=== PATIENT | female | born 1985 | race Caucasian/White ===

== ENCOUNTER 2024-01-13 08:33 | Outpatient (CLI) | payer OTHER, MEDICARE, SELFPAY ==
--- NOTE | 2024-01-13 | CA_ITS ---
APPROVED REPORT EXAM: Comprehensive 2D, Doppler, and color-flow Echocardiogram Period[employer] Library Assistant: MARIELLE Melendez, RVS Ht: 5 ft 6 in Wt: 310lbs BSA: 2.41 BP: 155/89 mmHg Indications: Dizziness and Vertigo 2D Dimensions IVSd 1.19 cm LA Volume 47.60 mL PWd 1.06 cm LA Volume Index 19.30 mL/m2 (M/F) 16-34 Left Atrium 3.73 cm M-Mode Dimensions RVDd 2.33 cm (0.9-2.6) LA Diam 4.10 cm (1.9-4.0) LVDd 4.65 cm (3.5-5.7) LVDs 3.20 cm (3.5-5.7) IVSd 1.41 cm (0.6-1.1) PWd 1.26 cm (0.6-1.1) EF (Teich) 58.90% EPSs 0.80 cm FS 31.20% EDV (Teich) 99.80 mL ESV (Teich) 41.00 mL LV Diastology E Decel Time 213 (160-240 msec) E/A Ratio 1.28 MED A' 10.50 cm/s LAT A' 7.80 cm/s Aortic Valve GIOVANNI Index 0.76 cm2/m2 AoV Peak Danny. 158.0 (50-130 cm/s) AO Peak GR. 10.00 mmHg AO Mean GR. 5.00 (<5 mmHg) AO VTI 30.3 (18-25 cm) GIOVANNI (VTI) 1.88 (2.5-4.5 cm2) Mitral Valve MV A Velocity 87.0 (40-130 cm/s) E/A Ratio 1.28 Pulmonary Valve PV Peak Velocity 86.0 (50-150 cm/s) Left Ventricle The left ventricle is normal size. The left ventricular systolic function is normal. The left ventricular ejection fraction is within the normal range. There is normal left ventricular wall thickness. There is normal LV segmental wall motion. The left ventricular diastolic function is normal. LVEF is 55%. Right Ventricle The right ventricle is normal size. The right ventricular systolic function is normal. Atria The left atrium size is normal. The right atrium size is normal. There is no Doppler evidence of interatrial shunt. Aortic Valve The aortic valve opens well. There is no aortic valvular stenosis. No aortic regurgitation is present. Mitral Valve The mitral valve is normal in structure. No evidence of mitral valve stenosis. Trace mitral regurgitation. Tricuspid Valve The tricuspid valve leaflets are thin and pliable. Trace tricuspid regurgitation. There is insufficient TR jet to estimate RVSP. Pulmonic Valve The pulmonary valve is normal in structure. Trace pulmonic regurgitation. Great Vessels The aortic root is normal in size. The ascending aorta is normal in size. IVC is normal in size and collapses >50% with inspiration. Pericardium There is no pericardial effusion. Other Information Study Quality: Fair Conclusion Normal biventricular systolic function. No significant valvular stenosis or regurgitation. Electronically signed by : Queta Ruiz MD 01/16/2024 10:16:53
--- NOTE | 2024-01-13 | CA_ITS ---
FINAL REPORT CLINICAL HISTORY: Syncope, Obesity, HTN COMPARISON: None FINDINGS: RIGHT CAROTID: CCA PSV - 65 cm/sec ICA PSV - 76 cm/sec ICA/CCA PSV ratio - 1.2 . Comments: No plaque disease is noted. LEFTCAROTID: CCA PSV - 84. cm/sec ICA PSV - 132. cm/sec ICA/CCA PSV ratio - 1.7 . Comments: No plaque disease is noted. Antegrade flow is seen within the vertebral arteries. IMPRESSION: Carotid stenosis classified less than 50% bilaterally Reviewed, Interpreted and Dictated by Priscilla Jessica MD Transcribed by TORRES Rossi Authenticated and [facility]
== END 2024-01-13 23:59 ==
LOC: RT 08:35
PROVIDERS: PCP Psychiatry & Neurology Neurology; Visit Provider Registered Nurse
DX: R42 Dizziness and giddiness (principal)
CPT/HCPCS: 93306; 93880

== ENCOUNTER 2024-01-23 07:11 | Outpatient (CLI) | payer OTHER, MEDICARE, SELFPAY ==
[2024-01-23] VITALS (10 sets, daily range): BP systolic 113–171; BP diastolic 71–107; PULSE 69–98; RESP 18; O2SAT 96–99; BMI 110.2; BMI 50.0
--- NOTE | 2024-01-23 07:16 | CT_ITS ---
APPROVED REPORT Jelly Maker: CLINICAL INDICATION Chest Pain TECHNIQUE Image Acquisition: A 128 slice MDCT scanner ([employer]) was used for data acquisition. A noncontrast coronary calcium scan was performed. A CT attenuation threshold of 130 Hounsfield units (HU) was used for the detection of calcium in contiguous voxels of 1 sq mm in area to be counted as individual lesions. Bolus tracking in the ascending aorta with a threshold of 180 HU was performed. Immediately afterwards, ECG synchronized cardiac CT was then performed from the cardiac base to apex using retrospective gating with ECG tube current modulation. A total of 85 mL of Isovue 370 mg/mL contrast medium was administered at 5 mL/sec followed by a saline flush using a biphasic injection protocol. A tube voltage of 120 KVp was used. The patient received the following medications prior to the cardiac CT. 150 mg of oral metoprolol 20 mg of intravenous metoprolol 15 mg of oral ivabradine 0.8 mg of sublingual nitroglycerin The average heart rate at the time of acquisition was 69 bpm and regular. Image Reconstruction Transaxial images were reconstructed at 0.67 mm slide thickness. Data was reviewed interactively on an advanced workstation capable of 2 and 3-dimensional displays in all conventional reconstruction formats, including multiplanar reformations, maximum intensity projections, curved multiplanar reformations, and volume rendered reconstructions. When applicable, selected routine images describing the relevant coronary anatomy and pathology were saved and sent to PACS. Complications None Technical Quality Overall image quality was good. Coronary artery opacification was adequate. Total DLP (Dose-Length Product) is 2265.6 mGy-cm. The reported value represents the total of one or more individual components during the CT acquisition of this date and at this time, and as such, the same value may appear in more than one CT report depending on the interpreting/reporting physicians. COMPARISON None FINDINGS CT Coronary Calcium Scoring LMA (Left Main Artery) = 0 LAD (Left Anterior Descending) = 4 LCX (Left Coronary Circumflex) = 0 RCA (Right Coronary Artery) = 7 Total Calcium Score = 11 using the AJ-130 method. The observed calcium score of 11 is at 96th percentile for subjects of the same age, sex, and race/ethnicity. The interpretation of the calcium heart score is based on the following continuum*: 0 = no calcified plaque detected (risk of coronary artery disease is very low ??? less than 5%) 1-10 = calcium detected in extremely minimal levels (risk of coronary diseases is still low ??? less than 10%) 11-100 = mild levels of plaque detected with certainty (mild or minimal narrowing of heart arteries is likely) 101-400 = definite,at least moderate levels of plaque detected (relatively high risk of a heart attack within 3-5 years) >401-999 = extensive levels of plaque detected (high risk of heart attack, high levels of vascular disease are present, high likelihood of at least one significant coronary narrowing) *The calcium heart score quantifies the burden of coronary calcification/plaque in the coronary arteries. The calcium heart score is not able to evaluate the presence or burden of non-calcified (i.e. soft) plaque. There is no identifiable calcification in the aortic valve, mitral annulus or mitral valve, pericardium, or myocardium. Coronary CT Angiography The coronary arterial system is right dominant. Quantitative Stenosis Grading: Left Main (LM): The left main originates normally from the left sinus of Valsalva. The LM bifurcates into the left anterior descending artery and left circumflex artery. The LM is patent with no evidence of atherosclerosis. Left Anterior Descending (LAD) and Diagonal Branches: The LAD gives off 2 diagonal branches. There is mild calcification in the mid LAD segment, but no evidence of luminal stenosis. There is no evidence of LAD-myocardial bridge. Left Circumflex (LCX) and Obtuse Marginals (OM): The LCX gives off 2 Obtuse Marginal (OM) branches. The LCX and its branches are patent with no evidence of atherosclerosis. Right Coronary Artery (RCA): The RCA originates normally from the right sinus of Valsalva. The RCA gives off a posterior descending artery (PDA) and posterolateral (PL) branches. There is mild calcification in the mid RCA, but no evidence of luminal stenosis. Non-Coronary Cardiac Findings: Analysis of the left ventricular (LV) structure and function was performed after 3-D reconstruction of the LV from axial images, with user-corrected automatic contouring for assessment of LV volumes and user-defined reconstruction from oblique planes for measurement of 3-D cardiac structure and function. -The left ventricle systolic function is normal. -There is no left atrial appendage filling defect. Two right pulmonary veins and two left pulmonary veins drain normally into the left atrium. -No pericardial thickening or calcification. -Central and branch pulmonary arteries in the [id number] are unremarkable. -Thoracic aorta within the visualized thoracic aortic-branches in the [id number] is unremarkable. Extracardiac Structures No significant extra-cardiac findings. Note, however, that this study is focused on the cardiac findings. IMPRESSION -Presence of coronary calcification with an Agatston score = 11 using the AJ-130 method. -The observed calcium score of 11 is at 96th percentile for subjects of the same age, sex, and race/ethnicity. -No evidence of significant flow-limiting atherosclerosis of the coronary arteries. -CAD-RADS 1. Management recommendations per ACC/AHA guidelines*, as clinically appropriate. *Recommendations: CAD RADS 0: Reassurance. Consider non-atherosclerotic causes of chest pain. CAD RADS 1: Consider non-atherosclerotic causes of chest pain. Consider preventive therapy and risk factor modification. CAD RADS 2: Consider non-atherosclerotic causes of chest pain. Consider preventive therapy and risk factor modification, particularly for patients with nonobstructive plaque in multiple segments. CAD RADS 3: Consider further functional testing. Consider symptom-guided anti-ischemic and preventive pharmacotherapy as well as risk factor modification per published guideline statements. CAD RADS 4A: Consider further functional testing or invasive coronary angiography with revascularization per published guideline statements. Consider symptom-guided anti-ischemic and preventive pharmacotherapy as well as risk factor modification per published guideline statements. CAD RADS 4B: Invasive coronary angiography recommended with revascularization per published guideline statements. Consider symptom-guided anti-ischemic and preventive pharmacotherapy as well as risk factor modification per published guideline statements. CAD RADS 5: Consider invasive angiography and/or viability assessment with revascularization per published guideline statements. Consider symptom-guided anti-ischemic and preventive pharmacotherapy as well as risk factor modification per published guideline statements. CRITICAL RESULT None COMMUNICATION Per this written report The coronary and cardiac findings of this CCTA were reviewed, reported, and signed by Francisco Ruiz MD (Health Educator) Conclusion Electronically signed by : Queta Ruiz MD 01/25/2024 23:31:23
[2024-01-23] MEDS: METOPROLOL TARTRATE 50MG TABLET *IVABRADINE+METOPROLOL REGIMINE 50 MG PO ×2 (07:40→08:25)
[2024-01-23] MEDS: IVABRADINE HCL 7.5MG TABLET *IVABRADINE+METOPROLOL REGIMINE 15 MG PO (07:40)
[2024-01-23] MEDS: METOPROLOL TARTRATE 25MG TABLET *IVABRADINE+METOPROLOL REGIMINE 25 MG PO ×2 (07:40→08:25)
[2024-01-23 07:47] LABS: Urine Pregnancy, HCG Qual. Negative (Negative)
[2024-01-23 08:03] LABS: Chloride 101 mmol/L (98-107); Potassium 4.1 mmoL/L (3.5-5.1); Sodium 135 mmol/L (136-145)
[2024-01-23 08:06] LABS: Blood Urea Nitrogen 13 mg/dl (7-17); Creatinine Clearance Estimated 117 mL/min (50-200); Estimated Glomerular Filt Rate 111 ml/min (>60); GFR (African American) 134 ML/MIN (>60)
[2024-01-23 08:07] LABS: Anion Gap 10.1 mEq/L (5-15); Calcium 9.4 mg/dl (8.4-10.2); Carbon Dioxide 28 mmol/L (22.0-30.0); Glucose 236 mg/dl (74-100)
[2024-01-23] MEDS: METOPROLOL TARTRATE 5MG/5ML VIAL *IVABRADINE+METOPROLOL REGIMINE 5 MG IV ×5 (09:10→09:30)
[2024-01-23] MEDS: NITROGLYCERIN 0.4MG SL TABLET 0.800000000000000044 MG SL (09:10)
[2024-01-23] MEDS: IOPAMIDOL-370 (76%);100ML BOTTLE 85 ML IV (09:40)
[2024-01-23] MEDS: 0.9 % SODIUM CHLORIDE 50 ML VIAL IV (09:40)
== END 2024-01-23 23:59 | disposition home or self-care (01) ==
PROVIDERS: PCP Family Medicine; Visit Provider Registered Nurse
DX: I20.89 Other forms of angina pectoris (principal)
CPT/HCPCS: 75571; 75574; 80048; 81025; Q9967

== ENCOUNTER 2024-08-30 10:02 | Outpatient (CLI) | payer OTHER, MEDICARE, SELFPAY ==
--- NOTE | 2024-08-30 10:10 | CT_ITS ---
FINAL REPORT TECHNIQUE: Thin section axial CT images of the temporal bones were obtained. Coronal reformatted images were also obtained. This study was performed with techniques to keep radiation doses as low as reasonably achievable (ALARA). Individualized dose reduction techniques using automated exposure control or adjustment of mA and/or kV according to the patient's size were employed. CLINICAL HISTORY: .ATTIC RETRACTION POCKET OF TYMPANIC, RIGHT EAR COMPARISON: None FINDINGS: Right temporal bone: The internal auditory canal has an unremarkable appearance. There is retraction of the tympanic membrane into the middle ear cavity. The inner ear structures are unremarkable. The external auditory canal has an unremarkable appearance. No abnormality is identified of the middle ear cavity. The ossicles are intact. The mastoid air cells and mastoid antrum have an unremarkable appearance. No bony mass is identified. Left temporal bone: The internal auditory canal has an unremarkable appearance. There is retraction of the tympanic membrane into the middle ear cavity. The inner ear structures are unremarkable. The external auditory canal has an unremarkable appearance. No abnormality is identified of the middle ear cavity. The ossicles are intact. The mastoid air cells and mastoid antrum have an unremarkable appearance. No bony mass is identified. IMPRESSION: There is moderate bilateral retraction of the tympanic membranes into the middle ear cavities, greater on the left than on the right. Otherwise unremarkable CT of the temporal bones. Reviewed, Interpreted and Dictated by Jose Antonio Quispe III, MD Transcribed by Diana Hernandez Authenticated and [facility]
== END 2024-08-30 23:59 | disposition home or self-care (01) ==
LOC: RAD 10:07
PROVIDERS: PCP Family Medicine; Visit Provider Otolaryngology
DX: H73.899 Other specified disorders of tympanic membrane, unspecified ear (principal)
CPT/HCPCS: 70480